=== PATIENT | male | born 1990 | race Caucasian/White ===

== ENCOUNTER 2017-03-24 15:26 | Inpatient (IN) | payer MEDICAID ==
[~2017-03-24] VITALS: Ht 188 cm; Wt 121.0 kg
[2017-03-24] MEDS ORDERED: DILTIAZEM 5 MG/ML, 5ML ONE (15:44)
[2017-03-24] MEDS ORDERED: DILTIAZEM 125 MG in DEXTROSE 5% 100 ML IV SCH (15:46)
[2017-03-24] MEDS ORDERED: DILTIAZEM 5 MG/ML, 5ML IV ONE (16:00)
[2017-03-24] MEDS ORDERED: SODIUM CHLORIDE 0.9% 1,000ML IVBOLUS ONE (16:00)
[2017-03-24 16:14] LABS: BASOPHILS # (AUTO) 0.08 x10^3/uL (0-0.1); BASOPHILS % (AUTO) 1 % (0-1); EOSINOPHILS # (AUTO) 0.14 x10^3/uL (0-0.4); EOSINOPHILS % (AUTO) 1 % (1-7); LYMPHOCYTES # (AUTO) 2.62 x10^3/uL (1-3.4); LYMPHOCYTES % (AUTO) 22 % (22-44); MD NO; MEAN CORPUSCULAR HEMOGLOBIN 27.7 pg (27.5-34.5); MEAN CORPUSCULAR VOLUME 83.9 fL (81-97); MEAN PLATELET VOLUME 10.1 fL (7.4-10.4); MONOCYTES # (AUTO) 0.58 x10^3/uL (0.2-0.8); MONOCYTES % (AUTO) 5 % (2-9); NEUTROPHILS # (AUTO) 8.57 x10^3/uL (1.8-6.8); NEUTROPHILS % (AUTO) 72 % (42-75); PLATELET COUNT 281 x10^3/uL (130-400); RED BLOOD COUNT 5.66 x10^6/uL (4.38-5.82); RED CELL DISTRIBUTION WIDTH 14.3 % (9.4-14.8)
[2017-03-24 16:29] LABS: ANION GAP 10 mmol/L (5-15); CALCIUM 9.1 mg/dL (8.5-10.1); CHLORIDE 108 mmol/L (98-107)
[2017-03-24] MEDS ORDERED: APIXABAN 5 MG TABLET PO ONE (16:30)
[2017-03-24 16:41] LABS: ALANINE AMINOTRANSFERASE 46 U/L (12-78); ALKALINE PHOSPHATASE 108 U/L (45-117); BILIRUBIN,TOTAL 0.6 mg/dL (0.2-1.0); CREATININE 0.81 mg/dL (0.7-1.3); T4 (THYROXINE) 12.1 mcg/dL (4.5-12.1); TOTAL PROTEIN 8.4 g/dL (6.4-8.2)
[2017-03-24] MEDS ORDERED: morphine SULFATE 10 MG/ML, 1ML IVPush ONE (17:30)
[2017-03-24] MEDS ORDERED: MORPHINE SULFATE 4 MG/ML, 1ML ONE (17:34)
[2017-03-24 18:11] LABS: MICROSCOPIC NOT IND
[2017-03-24 18:13] LABS: CULTURE INDICATED? NO
[2017-03-24 18:21] LABS: AMPHETAMINE SCREEN, URINE Negative (Negative); BARBITURATE SCREEN, URINE Negative (Negative); BENZODIAZEPINE SCREEN, URINE Negative (Negative); CANNABINOID SCREEN, URINE Negative (Negative); COCAINE SCREEN, URINE Negative (Negative); METHADONE SCREEN, URINE Negative (Negative); OPIATE SCREEN, URINE Negative (Negative)
[2017-03-24] MEDS ORDERED: POLYETHYLENE GLYCOL 17 GM PACKET PO PRN (18:30)
[2017-03-24] MEDS ORDERED: ONDANSETRON 2MG/ML, 2ML IVPush PRN (18:30)
[2017-03-24] MEDS ORDERED: BISACODYL 10 MG SUPP PR PRN (18:30)
[2017-03-24] MEDS ORDERED: DILTIAZEM 125 MG in SODIUM CHLORIDE 0.9% 100 ML IV PRN (18:30)
[2017-03-24] MEDS ORDERED: ACETAMINOPHEN 325 MG TABLET PO PRN (18:30)
[2017-03-24] MEDS: APIXABAN 5 MG TABLET PO SCH (21:00)
[2017-03-24 21:37] VITALS: BP 136/83
[2017-03-24] MEDS: NICOTINE 14MG/24 HR PATCH.TD24 TD SCH (22:27)
[2017-03-24] MEDS: SODIUM CHLORIDE FLUSH 10ML SYR IVF SCH (22:28)
[2017-03-24] MEDS ORDERED: DILTIAZEM 125 MG in SODIUM CHLORIDE 0.9% 100 ML IV SCH (23:30)
[2017-03-25 00:44] VITALS: BP 133/78
[2017-03-25 05:23] LABS: BASOPHILS # (AUTO) 0.18 x10^3/uL (0-0.1); BASOPHILS % (AUTO) 2 % (0-1); EOSINOPHILS # (AUTO) 0.38 x10^3/uL (0-0.4); EOSINOPHILS % (AUTO) 3 % (1-7); LYMPHOCYTES # (AUTO) 3.76 x10^3/uL (1-3.4); LYMPHOCYTES % (AUTO) 30 % (22-44); MD NO; MEAN CORPUSCULAR HEMOGLOBIN 28.5 pg (27.5-34.5); MEAN CORPUSCULAR HGB CONC 33.9 g/dL (33.2-36.2); MEAN CORPUSCULAR VOLUME 84.1 fL (81-97); MEAN PLATELET VOLUME 9.6 fL (7.4-10.4); MONOCYTES # (AUTO) 0.89 x10^3/uL (0.2-0.8); MONOCYTES % (AUTO) 7 % (2-9); NEUTROPHILS # (AUTO) 7.22 x10^3/uL (1.8-6.8); NEUTROPHILS % (AUTO) 58 % (42-75); PLATELET COUNT 265 x10^3/uL (130-400); RED BLOOD COUNT 5.37 x10^6/uL (4.38-5.82); RED CELL DISTRIBUTION WIDTH 14.4 % (9.4-14.8)
[2017-03-25 05:42] LABS: CHLORIDE 105 mmol/L (98-107)
[2017-03-25 06:01] LABS: ALANINE AMINOTRANSFERASE 39 U/L (12-78); ALBUMIN 3.5 g/dL (3.4-5.0); ALKALINE PHOSPHATASE 92 U/L (45-117); ANION GAP 10 mmol/L (5-15); BILIRUBIN,TOTAL 0.7 mg/dL (0.2-1.0); CALCIUM 8.3 mg/dL (8.5-10.1); CHOL/HDL RATIO 5.6; CHOLESTEROL, TOTAL 150 mg/dL (140-239); CREATININE 0.78 mg/dL (0.7-1.3); HDL CHOL % 18 % (26-37); HDL CHOLESTEROL (DIRECT) 27 mg/dL (40-60); LDL CHOLESTEROL,CALCULATED 89 mg/dL (54-169); LDL/HDL RATIO 3.3 (0.5-3.0); TOTAL PROTEIN 7.2 g/dL (6.4-8.2); TRIGLYCERIDES 171 mg/dL (50-200); TROPONIN I < 0.015 ng/mL (0.000-0.045); VLDL CHOLESTEROL 34 mg/dL (0-25)
[2017-03-25] MEDS: SODIUM CHLORIDE FLUSH 10ML SYR IVF SCH ×2 (07:51→21:44)
[2017-03-25] MEDS: APIXABAN 5 MG TABLET PO SCH ×2 (07:51→21:44)
[2017-03-25] MEDS: SENNA/DOCUSATE TABLET PO SCH (07:51)
[2017-03-25 08:49] VITALS: BP 119/80
[2017-03-25] MEDS ORDERED: POTASSIUM CHLORIDE 20 MEQ TAB.ER.PRT PO ONE (12:00)
[2017-03-25 12:07] LABS: TROPONIN I < 0.015 ng/mL (0.000-0.045)
[2017-03-25] MEDS: METOPROLOL TARTRATE 25 MG TABLET PO SCH ×2 (12:12→18:09)
[2017-03-25 14:52] VITALS: BP 122/79
[2017-03-25] MEDS: NICOTINE 14MG/24 HR PATCH.TD24 TD SCH (18:09)
[2017-03-25 18:51] VITALS: BP 125/84
[2017-03-26 01:09] VITALS: BP 128/83
[2017-03-26 06:04] VITALS: BP 118/73
[2017-03-26] MEDS: METOPROLOL TARTRATE 25 MG TABLET PO SCH (06:05)
[2017-03-26] MEDS ORDERED: ACET325T14 PO (07:26)
[2017-03-26] MEDS ORDERED: METO25TA35 PO (07:26)
[2017-03-26] MEDS ORDERED: ASPI-650 PO (07:26)
[2017-03-26] MEDS ORDERED: ASPIRIN 325 MG TABLET EC PO SCH (07:30)
[2017-03-26] MEDS: SENNA/DOCUSATE TABLET PO SCH (09:00)
[2017-03-26] MEDS: SODIUM CHLORIDE FLUSH 10ML SYR IVF SCH (09:00)
[2017-03-26 13:15] VITALS: BP 125/86
== END 2017-03-26 18:42 | disposition home or self-care (01) | DRG 309 ==
LOC: ED 17:33 → EDIP 17:34 → ED 18:18 → 5SO 21:34
PROVIDERS: ADMIT Hospitalist; ATTEND Hospitalist
DX: I48.0 Paroxysmal atrial fibrillation (principal); D68.69 Other thrombophilia; D72.829 Elevated white blood cell count, unspecified; G89.29 Other chronic pain; K08.89 Other specified disorders of teeth and supporting structures; F17.210 Nicotine dependence, cigarettes, uncomplicated; Z79.899 Other long term (current) drug therapy; Z91.14 Patient's other noncompliance with medication regimen; Z86.61 Personal history of infections of the central nervous system; Z82.49 Family history of ischemic heart disease and other diseases of the circulatory system
CPT/HCPCS: 36415; 70100; 71045; 80053; 80061; 80307; 81003; 83735; 84436; 84443; 84484; 85025; 93005; 93306; 96361; 96374; 96375; J2270; J7030